=== PATIENT | male | born 1960 | race Caucasian/White ===

== ENCOUNTER 2018-06-02 15:28 | Emergency (ER) | payer OTHER ==
[2018-06-02] MEDS ORDERED: NAPROXEN 250 MG TABLET PO STA (16:38)
--- NOTE | 2018-06-02 17:15 | XRAY Report ---
Reason: shoulder injury Procedure Date: 06/02/2018 Accession Number: [id number] / [id number] Procedure: XR - Shoulder 3 View RT CPT Code: FULL RESULT: EXAM: RIGHT SHOULDER RADIOGRAPHY EXAM DATE: 06/02/2018 05:10 PM. CLINICAL HISTORY: Shoulder injury. COMPARISON: None. TECHNIQUE: 3 views. FINDINGS: Bones: Negative for fracture. There is mild spurring and degenerative disease of the acromioclavicular joint. Joints: The glenohumeral and acromioclavicular joints are normal. Soft tissues: Unremarkable. IMPRESSION: 1. No acute fracture or subluxation. Mild degenerative disease of acromioclavicular joint. RADIA
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
[2018-06-02 18:04] VITALS: BP 134/69
== END 2018-06-02 18:05 | disposition home or self-care (01) ==
LOC: ED 15:28
DX: S46.811A Strain of other muscles, fascia and tendons at shoulder and upper arm level, right arm, initial encounter (principal); V49.40XA Driver injured in collision with unspecified motor vehicles in traffic accident, initial encounter
CPT/HCPCS: 73030; 99283; A9270

== ENCOUNTER 2021-06-04 11:57 | Emergency (ER) | payer MEDICAID, OTHER ==
[2021-06-04 12:21] VITALS: BP 149/73
--- NOTE | 2021-06-04 13:09 | ED Physician Documentation ---
PD HPI LOWER EXT INJURY - Stated complaint Stated Complaint: R KNEE PX - Chief complaint Chief Complaint: Ext Problem - History obtained from History obtained from: Patient - Additional information Additional information: Developed atraumatic right knee pain about 5 days ago. Hurts to walk, bend and straighten the leg with a lot of tightness and swelling. There was no specific injury. He has never had this before. No other joint issues. No fevers or chills. Review of Systems Constitutional: reports: Reviewed and negative Nose: reports: Reviewed and negative Throat: reports: Reviewed and negative Cardiac: reports: Reviewed and negative Respiratory: reports: Reviewed and negative PD PAST MEDICAL HISTORY - Past Medical History Past Medical History: Yes - Past Surgical History Past Surgical History: No - Present Medications Home Medications: Ambulatory Orders Medication Instructions Recorded Confirmed Acetaminophen [Tylenol Extra 06/02/18 Strength] Amlodipine Besylate [Norvasc] 06/02/18 Ibuprofen 06/02/18 Lisinopril/Hydrochlorothiazide 06/02/18 [Lisinopril-Hctz 20-12.5 mg Tab] Naproxen 500 mg PO BID PRN #60 tablet 06/02/18 - Allergies Allergies/Adverse Reactions: Allergies Allergy/AdvReac Type Severity Reaction Status Date / Time erythromycin base Allergy Unknown Verified 06/04/21 12:21 Iodinated Contrast Media Allergy Hives Verified 06/04/21 12:21 - Social History Does the pt smoke?: No Smoking Status: Never smoker Does the pt drink ETOH?: No Does the pt have substance abuse?: No - Immunizations Immunizations are current?: No Immunizations: TDAP >10years/unknown - POLST Patient has POLST: No PD ED PE NORMAL - Vitals Vital signs reviewed: Yes - General General: Alert and oriented X 3, No acute distress - Derm Derm: Normal color, Warm and dry - Extremities Extremities: Other (The right knee has a large effusion, it is mildly tender over the joint, no warmth or redness. He has pain with range of motion, but not exquisite like a septic joint.) - Neuro Neuro: Alert and oriented X 3, Normal speech Results - Vitals Vitals: Vital Signs - 24 hr 06/04/21 12:17 Temperature 36.8 C Heart Rate 62 Respiratory 18 Rate Blood Pressure 149/73 H O2 Saturation 99 Oxygen O2 Source Room air - Rads (name of study) Right knee x-ray Radiology: EMP read contemporaneously (Tricompartmental osteoarthritis) Procedures - General procedure General procedure: I felt clinically that there was a knee effusion, as such the right knee was prepped and draped and locally infiltrated with 1% lidocaine with epinephrine and then the joint was accessed and there was no significant synovial fluid to aspirate. I sterilely infiltrated about 2 mL of 0.5% Marcaine which actually gave him excellent short-term pain relief. Departure - Departure Disposition: 01 Home, Self Care Clinical Impression: Osteoarthritis Qualifiers: Osteoarthritis location: knee Osteoarthritis type: primary Laterality: right Qualified Code(s): M17.11 - Unilateral primary osteoarthritis, right knee Condition: Good Record reviewed to determine appropriate education?: Yes Instructions: Knee Osteoarthritis Follow-Up: [facility] [Provider Group] [facility] [Provider Group] Comments: As discussed, your x-ray shows tricompartmental osteoarthritis of the knee. I am giving you some numbers of local primary care physicians that take [facility] [employer] insurance, also the number of the local orthopedic surgeon. Follow-up for the osteoarthritis. Return for any worsening symptoms. For pain probably the best [id number] option would be occasional naproxen/Aleve or Tylenol. Aleve can cause some trouble if you take it frequently and long-term.
[2021-06-04] MEDS: BUPIVACAINE 0.5% PF 10 ML VIAL SUBQ STA ×2 (13:13→13:18)
--- NOTE | 2021-06-04 13:35 | XRAY Report ---
PROCEDURE: Knee 4 View RT INDICATIONS: knee pain TECHNIQUE: 4 views of the right knee(s) were acquired. COMPARISON: None. FINDINGS: Bones: No fractures or dislocations. No suspicious bony lesions. Mild tricompartmental osteoarthrit ic degenerative changes. Soft tissues: No joint effusion. No suspicious soft tissue calcifications. IMPRESSION: 1. No acute osseous lesion. If there persistent symptoms or continued clinical concern for pathology, then repeat plain film radiographs (7-10 days) or advanced imaging (CT, MR, bone scan) should be con sidered for further evaluation. 2. Mild tricompartmental osteoarthritis. Reviewed by: Pallavi Christopher MD, PhD on 06/04/2021 12:33 PM [facility] Approved by: Pallavi Christopher MD, PhD on 06/04/2021 12:33 PM [facility] Station ID: [id number]
== END 2021-06-04 13:59 | disposition home or self-care (01) ==
LOC: ED 11:57
DX: M17.11 Unilateral primary osteoarthritis, right knee (principal); M25.461 Effusion, right knee
CPT/HCPCS: 20610

== ENCOUNTER 2021-06-11 08:48 | Outpatient (CLI) | payer MEDICAID ==
--- NOTE | 2021-06-11 11:46 | XRAY Report ---
PROCEDURE: Knee 4 View RT INDICATIONS: RIGHT KNEE PAIN TECHNIQUE: 4 views of the right knee and one view of the left knee were acquired. COMPARISON: Right knee radiographs 06/04/2021 FINDINGS: Bones: No acute fractures or dislocations. No suspicious bony lesions. There is mild joint space n arrowing involving the medial femorotibial compartment with formation of small marginal osteophytes. Minimal degenerative changes are seen in the lateral and anterior compartments. Soft tissues: Small joint effusion. No suspicious soft tissue calcifications. IMPRESSION: No acute osseous abnormality. Mild osteoarthrosis. If symptoms persist or there is matthew nued clinical concern, further evaluation with MRI or CT may be helpful. Reviewed by: Eb West MD on 06/11/2021 11:44 AM PST Approved by: Eb West MD on 06/11/2021 11:44 AM PST Station ID: [id number]
== END 2021-06-11 08:49 | disposition home or self-care (01) ==
LOC: DI.WOS 08:48
PROVIDERS: ATTEND Orthopaedic Surgery
DX: M17.11 Unilateral primary osteoarthritis, right knee (principal)